=== PATIENT | female | born 1995 | race African-American/Black ===

== ENCOUNTER 2021-03-06 07:56 | Emergency (ER) | payer OTHER ==
[~2021-03-06] VITALS: Ht 162.6 cm; Wt 77.1 kg
--- NOTE | ~2021-03-06 | EMS ---
[place] [address] EMS Patient Care Report Name: MARY FU Room #: DEP PARAS Hilliard#: [id number] Admission: 03/06/21 Attend Phys: Discharge: 03/06/21 Date of : [birth year] Report #: [id number] THIS REPORT FOR: //name// Report Transmitted: 03/10/2021 14:40 EMS Care Summary [place], [place]/[facility] Incident [id number] @ 03/06/2021 07:27 Incident Location [facility] [address] [place] [address] Patient MARY FU Female, 25 Years 1995 Patient Address [address] [place] [address] Patient History Asthma, Patient Allergies No known allergies, Patient Medications Albuterol, Chief Complaint dyspnea Disposition Transported No Lights/[place] Reason Breathing Problem Transported To [facility] Narrative pt found sitting upright on couch and alert. pt a&ox4 gcs 15 and presented anxious. pt presented with an audible stridor and grunt upon inspiration. upon auscultation the grunting and stridor would interfere with breath sounds. pt stated she moved out of her house yesterday 03/05/21 due to mold. [place] [address] EMS Patient Care Report Name: MARY FU Room #: DEP ER [place]#: [id number] Admission: 03/06/21 Attend Phys: Discharge: 03/06/21 Date of : [birth year] Report #: [id number] has been having dyspnea off and on x1 day. pt requested to be transported to nearest hospital. 100% spo2 ra. ems palpated pts throat and the inspiratory grunt could be palpated at area of larynx. pt was assisted to ems cot. pt was transferred onto ems cot and was secured in a semi fowlers position without incident. pt was loaded into ambulance. upon conversation pt no longer had the stridor/ grunting. in ambulance pt completely stopped having stridor/ grunting and calmed down. cebbs. suspected the stridor/grunting was elective and associated with pts anxiety. pt was transported non emergent. pt was administered 2lpm o2 via nc for pts comfort. pt did not exhibit any more stridpr/grunting. pt was calm and did not present in any distress. no signs of increased work of breathing. cebbs. transport was uneventful and pt rested on ems cot. pt was friendly and conversational. pt care was transferred to appropriate staff and ems goes back in service. Initial Vitals @07:34P: 80,R: 20,BP: 126/84,Pain: 0/10,GCS: 15,SpO2: 100,Revised Trauma: 12, @07:52P: 86,R: 20,BP: 116/72,GCS: 15,SpO2: 100,Revised Trauma: 12, Assessments @07:33MENTAL:No Abnormalities,SKIN:No Abnormalities,HEENT:Head/Face: No Abnormalities,Eyes: No Abnormalities,Neck/Airway: No Abnormalities,LUNG SOUNDS:General: No Abnormalities,Left Upper: No Abnormalities,Right Upper: No Abnormalities,Left Lower: No Abnormalities,Right Lower: No Abnormalities,ABDOMEN:General: No Abnormalities,Left Upper: No Abnormalities,Right Upper: No Abnormalities,Left Lower: No Abnormalities,Right Lower: No Abnormalities,PELVIS//GI:No Abnormalities,EXTREMITIES:Left Arm: No Abnormalities,Right Arm: No Abnormalities,Left Leg: No Abnormalities,Right Leg: No Abnormalities,PULSE:NEURO:No Abnormalities,@07:43MENTAL:No Abnormalities,SKIN:No Abnormalities,HEENT:Head/Face: No Abnormalities,Eyes: No Abnormalities,Neck/Airway: No Abnormalities,LUNG SOUNDS:General: No Abnormalities,Left Upper: No Abnormalities,Right Upper: No Abnormalities,Left Lower: No Abnormalities,Right Lower: No Abnormalities,ABDOMEN:General: No Abnormalities,Left Upper: No Abnormalities,Right Upper: No Abnormalities,Left Lower: No Abnormalities,Right Lower: No Abnormalities,PELVIS//GI:No Abnormalities,EXTREMITIES:Left Arm: No Abnormalities,Right Arm: No Abnormalities,Left Leg: No Abnormalities,Right Leg: No Abnormalities,PULSE:NEURO:No Abnormalities, Impression Acute Respiratory Distress (Dyspnea) Procedures @07:33ALS AssessmentResponse: UnchangedSucceeded@07:43Oxygen FlowRate: 2 Device: Nasal Cannula (NC) Response: ImprovedSucceeded Timeline [address] [address] EMS Patient Care Report Name: MARY FU Room #: CARLA Hilliard#: [id number] Admission: 03/06/21 Attend Phys: Discharge: 03/06/21 Date of : [birth year] Report #: [id number] 07:25,Call Received 07:25,Dispatch Notified 07:27,Dispatched 07:27,En Route 07:32,On Scene 07:33,At Patient 07:33,ALS Assessment,Response: UnchangedSucceeded, 07:34,BP: 126/84 M,PULSE: 80,RR: 20 R,SPO2: 100 Ox,ETCO2: ,BG: ,PAIN: 0,GCS: 15, 07:42,Depart Scene 07:43,Oxygen FlowRate: 2 Device: Nasal Cannula (NC) Response: ImprovedSucceeded, 07:52,BP: 116/72 M,PULSE: 86,RR: 20 R,SPO2: 100 Ox,ETCO2: ,BG: ,PAIN: ,GCS: 15, 07:53,At Destination 08:02,Call Closed Disclaimer v1.1 Copyright 2020 [employer] This EMS Care Summary contains data elements from the applicable legal record (which may be displayed differently). It is designed to provide pertinent information for the following purposes: continuity of care, clinical quality, and state data reporting. The complete legal record is available to ED staff and administrators of the receiving hospital in [employer]'s Patient Tracker. All data is provided "as is."
[2021-03-06] MEDS ORDERED: PROAIR HFA8.5 GM INH (08:04)
[2021-03-06] MEDS ORDERED: PREDNISONE 10 M10 M1 PO (09:09)
[2021-03-06 09:16] VITALS: BP 123/73
[2021-03-08] MEDS ORDERED: PREDNISONE 10 M10 M1 PO (10:29)
== END 2021-03-06 09:22 | disposition home or self-care (01) ==
LOC: ER 07:56
DX: J04.0 Acute laryngitis (principal); J45.909 Unspecified asthma, uncomplicated